=== PATIENT | male | born 1950 | race Asian ===

== ENCOUNTER 2017-05-02 14:02 | Inpatient (IN) | payer OTHER ==
[~2017-05-02] VITALS: Ht 193 cm; Wt 88.0 kg
[2017-05-02 14:04] VITALS: BP 206/103; TEMP 98.4
[2017-05-02 14:43] LABS: PLATELET COUNT 290 K/uL (142-355)
[2017-05-02 14:51] LABS: POTASSIUM 4.2 mmol/L (3.6-5.2); SODIUM 138 mmol/L (136-145)
[2017-05-02 16:15] VITALS: BP 178/94
[2017-05-02 18:20] VITALS: BP 195/110
[2017-05-03 02:07] VITALS: BP 180/110; TEMP 97.9; Ht 193 cm; Wt 88.0 kg
[2017-05-03 04:00] VITALS: BP 162/90; TEMP 100.1
[2017-05-03 05:37] LABS: POTASSIUM 4.1 mmol/L (3.6-5.2); SODIUM 135 mmol/L (136-145)
[2017-05-03 06:21] LABS: PLATELET COUNT 277 K/uL (142-355)
[2017-05-03 08:00] VITALS: BP 177/99; TEMP 97.5
[2017-05-03 12:00] VITALS: BP 191/96; TEMP 98.9
[2017-05-03 16:00] VITALS: BP 169/94; TEMP 98.9
[2017-05-03 20:00] VITALS: BP 194/105; TEMP 97.7
[2017-05-04 04:00] VITALS: BP 176/102; TEMP 97.7
[2017-05-04 07:02] LABS: PLATELET COUNT 298 K/uL (142-355)
[2017-05-04 08:00] VITALS: BP 146/104; TEMP 97.9
[2017-05-04 09:11] LABS: POTASSIUM 3.9 mmol/L (3.6-5.2); SODIUM 135 mmol/L (136-145)
[2017-05-04 11:56] VITALS: BP 116/92; TEMP 98
[2017-05-04 15:58] VITALS: BP 196/110; TEMP 98.7
== END 2017-05-04 16:31 | disposition home or self-care (01) | DRG 389 ==
LOC: ED 14:02 → MED/SURG 18:30
PROVIDERS: Student in an Organized Health Care Education/Training Program
DX: K56.699 Other intestinal obstruction unspecified as to partial versus complete obstruction (principal); A04.8 Other specified bacterial intestinal infections; E86.0 Dehydration; D72.828 Other elevated white blood cell count
CPT/HCPCS: 36415; 43754; 74022; 80053; 82150; 83690; 83735; 85027; 96365; 96372; 96375; 96376; 99284; J1650; J1885; J2175; J2405; J2543; J2550; J3411; J3490; Q9963

== ENCOUNTER 2018-07-29 18:30 | Emergency (ER) | payer OTHER ==
[~2018-07-29] VITALS: Ht 193 cm; Wt 90.7 kg
[2018-07-29 19:12] LABS: PLATELET COUNT 327 K/uL (142-355)
[2018-07-29 21:23] VITALS: BP 156/93; TEMP 98.3
== END 2018-07-29 21:20 | disposition home or self-care (01) ==
LOC: ED 18:30
PROVIDERS: Family Medicine
DX: R10.9 Unspecified abdominal pain (principal); K52.9 Noninfective gastroenteritis and colitis, unspecified; F12.90 Cannabis use, unspecified, uncomplicated; F14.90 Cocaine use, unspecified, uncomplicated
CPT/HCPCS: 36415; 74022; 80053; 80307; 80320; 81000; 82150; 83690; 85027; 96374; 96375; 99284; J1885; J2405; J3490

== ENCOUNTER 2018-08-16 06:19 | Emergency (ER) | payer OTHER ==
[~2018-08-16] VITALS: Ht 193 cm; Wt 81.6 kg
[2018-08-16 08:00] LABS: PLATELET COUNT 276 K/uL (142-355)
[2018-08-16 08:08] LABS: POTASSIUM 3.8 mmol/L (3.6-5.2); SODIUM 141 mmol/L (136-145)
[2018-08-16 10:00] VITALS: BP 172/85; TEMP 97.9
== END 2018-08-16 10:00 | disposition home or self-care (01) ==
LOC: ED 06:19
PROVIDERS: Family Medicine
DX: K56.609 Unspecified intestinal obstruction, unspecified as to partial versus complete obstruction (principal)
CPT/HCPCS: 36415; 80053; 82150; 82550; 83690; 84484; 85027; 96360; 96375; 99284; J1885; J2405; J3490

== ENCOUNTER 2019-08-11 12:03 | Emergency (ER) | payer OTHER ==
[~2019-08-11] VITALS: Ht 193 cm; Wt 88.5 kg
[2019-08-11 14:09] VITALS: BP 150/90; TEMP 97
== END 2019-08-11 14:13 | disposition home or self-care (01) ==
LOC: ED 12:03
DX: M19.012 Primary osteoarthritis, left shoulder (principal)
CPT/HCPCS: 99283

== ENCOUNTER 2021-12-14 20:30 | Emergency (ER) | payer OTHER ==
[~2021-12-14] VITALS: Ht 193 cm; Wt 79.8 kg
[2021-12-14 22:15] VITALS: BP 126/74; TEMP 97.7
== END 2021-12-14 22:15 | disposition home or self-care (01) ==
LOC: ED 20:30
DX: L29.8 Other pruritus (principal)
CPT/HCPCS: 96372; 99283; J1200